=== PATIENT | male | born 1960 | race Caucasian/White ===

== ENCOUNTER 2020-10-28 06:41 | Outpatient (CLI) | payer OTHER, SELFPAY ==
--- NOTE | ~2020-10-28 | XR_ITS ---
XR chest 2V 10/28/2020 06:54 Indication: Shortness of breath Procedure: PA and lateral views of the chest Comparison: No prior studies for comparison. Findings: Heart size normal. There is ectasia of the thoracic aorta. There is scoliosis. Bibasilar in filtrates. No significant pleural effusion, edema or pneumothorax. No acute osseous abnormality. Ther e is a spinal tamika overlying the thoracic spine. There are tiny punctate foreign bodies overlying the left breast. Impression: 1: Bibasilar infiltrates may represent atelectasis/scarring or developing pneumonia. Reviewed, dictated and finalized at location B. Impression: 1: Bibasilar infiltrates may represent atelectasis/scarring or developing pneum onia.
== END 2020-10-28 06:42 | disposition home or self-care (01) ==
PROVIDERS: PCP Family Medicine; Visit Provider Physician Assistant Medical
DX: R06.02 Shortness of breath (principal); R91.8 Other nonspecific abnormal finding of lung field
CPT/HCPCS: 71046

== ENCOUNTER 2020-11-30 08:02 | Outpatient (CLI) | payer OTHER, SELFPAY ==
--- NOTE | ~2020-11-30 | XR_ITS ---
XR chest 2V 11/30/2020 08:17 Indication: Follow-up pneumonia Procedure: PA and lateral views of the chest Comparison: 10/28/2020 Findings: Persistent left lower lobe airspace disease with resolution of right basilar infiltrates. N o significant effusion. Heart size normal. No edema or pneumothorax. Impression: 1: Persistent left lower lobe airspace disease which may represent atelectasis and/or residual pneumo lynn. Reviewed, dictated and finalized at location A. Impression: 1: Persistent left lower lobe airspace disease which may represent atelectasis and/or residual pneumonia.
== END 2020-11-30 08:03 | disposition home or self-care (01) ==
PROVIDERS: PCP Family Medicine; Visit Provider Physician Assistant Medical
DX: J98.11 Atelectasis (principal)
CPT/HCPCS: 71046

== ENCOUNTER 2021-01-17 02:05 | Day surgery (SDC) | payer OTHER, SELFPAY ==
[2021-01-04 09:59] VITALS: BMI 28.1
[2021-01-17 07:46] VITALS: BP 149/96; PULSE 83; RESP 18; TEMP 36.6; O2SAT 96; BMI 28.1
[2021-01-17] MEDS: LACTATED RINGERS 1,000 ML 150 ML IV CONT (07:48)
--- NOTE | 2021-01-17 08:20 | PM.HPGS ---
History of Present Illness History of Present Illness Consent: Risks, benefits, and alternatives have been discussed and questions answered. Patient agrees to proceed with procedure. Chief complaint: anemia, melena Narrative: Wyatt Hilton is a 60 year old male with AYAD and FOBT + but denies overt gib, no dysphagia. Never had scopes. Review of Systems Constitutional: Constitutional: Denies headache(s) and Denies weakness Eyes: Eyes: Denies blurry vision ENT: Reports Normal hearing present, Denies headache(s) and Denies neck pain Cardiovascular: Cardiovascular: Denies chest pain and Denies dyspnea Respiratory: Respiratory: Denies dyspnea Gastrointestinal: Gastrointestinal: Reports no additional gastrointestinal complaints Genitourinary: Genitourinary: Denies dysuria Musculoskeletal: Musculoskeletal: Denies neck pain Integumentary/Breasts: Skin/Breast: Denies dry skin Neurologic: Reports Normal hearing present, Denies headache(s) and Denies weakness Psychiatric: Psychiatric: Denies anxiety Endocrine: Endocrine: Denies change in body appearance Hematologic/Lymphatic: Hematologic/Lymphatic: Denies easy bleeding Allergic/Immunologic: Allergic/Immunologic: Denies urticaria PMFSH Past Medical History Medical History (Updated 01/17/21 @ 08:20 by Ar Ponce MD) BMI (body mass index) 20.0-29.9 Iron deficiency anemia Occult blood in stools Family History Family History Father Hypertension Social History Social History Smoking packs per day: 0.50 Smoking cigarettes per day: 10.0 Years smoked: 30 Smoking pack-years: 15.00 Smoking status: Current some day smoker Tobacco type: cigarettes Second hand tobacco smoke exposure: No Alcohol intake: never Substance use: never Substance use type: does not use Living arrangements: with family Spiritual care concerns: No Meds Home Medications and Allergies Home Medications Medication Instructions Recorded Confirmed Type ferrous sulfate 325 mg (65 mg 325 mg PO TID #90 tablet 11/12/20 01/17/21 Rx iron) tablet albuterol sulfate 90 mcg/actuation 1 inh INHALATION Q4H PRN #6.7 g 11/17/20 01/17/21 Rx aerosol inhaler rosuvastatin 40 mg tablet 40 mg PO DAILY #30 tablet 11/17/20 01/17/21 Rx aspirin [Adult Low Dose Aspirin] 81 mg PO DAILY 01/04/21 01/17/21 History Allergies Allergy/AdvReac Type Severity Reaction Status Date / Time Penicillins Allergy Mild made knees Verified 01/17/21 07:45 hurt Vital Signs Vital Signs - 24 hr 01/17/21 07:46 Temperature 98 F Pulse Rate 83 Respiratory Rate 18 Blood Pressure 149/96 H Pulse Oximetry 96 Exam Const: General: comfortable and no acute distress HENMT: General nose exam: Normal nares present Eyes: General: appearance normal, both eyes and all related structures Neck: Neck: no JVD Resp: Auscultation: clear to auscultation bilaterally Cardio: Rate: regular rate Rhythm: regular rhythm GI: Inspection: non-distended GI Palp: Yes Soft to palpation Skin: General skin exam: normal color Neuro: General: gait normal Speech: normal speech Extrem: General: normal to inspection Psych: Mental Status: mental status grossly normal Assessment and Plan Assessment and plan (1) Iron deficiency anemia: Code(s): D50.9 - Iron deficiency anemia, unspecified Status: Acute Assessment and Plan: egd and colonoscopy, assess if gi source (2) Occult blood in stools: Code(s): R19.5 - Other fecal abnormalities Status: Acute
--- NOTE | 2021-01-17 08:21 | WPDANESEPPF ---
Anes - Initial Pre Proc Eval Procedure: Operation Date: 01/17/21 08:30 Proposed Procedures p Esophagogastroduodenoscopy & Colonoscopy - Ar Ponce MD Date/Time: 01/17/21 08:21 Surgeon: Ar Ponce MD Pre Op Diagnosis: anemia, melena Patient Data Age: 60 Gender: M Height: 1.93 m Weight: 105 kg Last Vital Signs Temp 98 F 01/17/21 07:46 Pulse 83 01/17/21 07:46 Resp 18 01/17/21 07:46 BP 149/96 H 01/17/21 07:46 Pulse Ox 96 01/17/21 07:46 Allergies Allergy/AdvReac Type Severity Reaction Status Date / Time Penicillins Allergy Mild made knees Verified 01/17/21 07:45 hurt Home Medications Medication Instructions Recorded Confirmed Type ferrous sulfate 325 mg (65 mg 325 mg PO TID #90 tablet 11/12/20 01/17/21 Rx iron) tablet albuterol sulfate 90 mcg/actuation 1 inh INHALATION Q4H PRN #6.7 g 11/17/20 01/17/21 Rx aerosol inhaler rosuvastatin 40 mg tablet 40 mg PO DAILY #30 tablet 11/17/20 01/17/21 Rx aspirin [Adult Low Dose Aspirin] 81 mg PO DAILY 01/04/21 01/17/21 History Patient hx anesthesia problems: none Family hx anesthesia problems: none PMFSH Past Medical History Medical History (Updated 01/17/21 @ 08:20 by Ar Ponce MD) BMI (body mass index) 20.0-29.9 Iron deficiency anemia Occult blood in stools Family History Family History Father Hypertension Social History Social History Smoking packs per day: 0.50 Smoking cigarettes per day: 10.0 Years smoked: 30 Smoking pack-years: 15.00 Smoking status: Current some day smoker Tobacco type: cigarettes Second hand tobacco smoke exposure: No Alcohol intake: never Substance use: never Substance use type: does not use Living arrangements: with family Spiritual care concerns: No Anes - Eval Final PreProcedure Day of Procedure 01/17/21 08:21 Patient weight: obese Heart: regular rate and rhythm Lungs: clear to auscultation Airway: Mallampati scale class III Neurological: alert and oriented Last oral intake: >/= 8 hours ASA classification: III Emergent: no Anesthetic plan: proceed Anesthesia type and monitoring: general GIVS and standard monitoring Informed Consent: The patient's anesthetic plan and its attendant risks and benefits were discussed with the patient/family/POA. Questions were solicited and answers provided to the satisfaction of the patient/family/POA.
[2021-01-17] MEDS: BENZOCAINE (*SP) 60 ML SPRAY CAN (HURRICAINE) 1 SPRAY MUCOUS MEM (08:31)
[2021-01-17 09:05] VITALS: BP 135/84; PULSE 82; RESP 20; O2SAT 96
[2021-01-17 09:15] VITALS: BP 141/84; PULSE 79; RESP 22; O2SAT 96
[2021-01-17 09:25] VITALS: BP 153/99; PULSE 80; RESP 21; O2SAT 97
== END 2021-01-17 09:35 | disposition home or self-care (01) ==
PROVIDERS: PCP Family Medicine; Visit Provider Internal Medicine Gastroenterology
PROC: 0DJ08ZZ Inspection of Upper Intestinal Tract, Via Natural or Artificial Opening Endoscopic (ICD-10-PCS; CPT 43235; principal; 2021-01-17 08:30)
DX: D50.9 Iron deficiency anemia, unspecified (principal); D12.5 Benign neoplasm of sigmoid colon; K22.70 Barrett's esophagus without dysplasia; R19.5 Other fecal abnormalities; K44.9 Diaphragmatic hernia without obstruction or gangrene; K57.30 Diverticulosis of large intestine without perforation or abscess without bleeding; F17.210 Nicotine dependence, cigarettes, uncomplicated
CPT/HCPCS: 45385; 43239; 88305; J2704; J7120

== ENCOUNTER 2021-01-31 05:38 | Outpatient (CLI) | payer OTHER, SELFPAY ==
[2021-01-21 12:27] VITALS: BMI 27.3
--- NOTE | 2021-01-21 12:27 | PC.NURSE ---
[facility] CAPSULE INSTRUCTIONS REVIEWED WITH PATIENT AND INSTRUCTIONS MAILED TO PATIENT 01/19/2021
--- NOTE | 2021-01-31 06:39 | SUR.OPER ---
Patient brought to GI Lab. Instructions for patient undergoing Capsule Endoscopy reviewed with patient. Consent form signed. Sensor array applied to patient's abdomen and connected to recorded. Patient swallowed capsule with 16 ozs of water infused with Simethicone. Patient instructed they may have clear liquids at 0830 this AM and eat or drink at 1030 this AM. Patient instructed to return to GI Lab at 1500 this afternoon for removal of recording device and to call [phone] or to return to the hospital if any nausea and vomiting or abdominal pain is experienced.
== END 2021-01-31 05:39 | disposition home or self-care (01) ==
PROVIDERS: PCP Family Medicine; Visit Provider Internal Medicine Gastroenterology
PROC: 0DJ07ZZ Inspection of Upper Intestinal Tract, Via Natural or Artificial Opening (ICD-10-PCS; CPT 91110; principal; 2021-01-31 07:00)
DX: Z01.818 Encounter for other preprocedural examination (principal)
CPT/HCPCS: 91110

== ENCOUNTER 2021-05-02 07:11 | Outpatient (CLI) | payer OTHER, SELFPAY ==
--- NOTE | ~2021-05-02 | XR_ITS ---
EXAMINATION: XR chest 2V DATE: 05/02/2021 07:27 INDICATION: Cough TECHNIQUE: Frontal and lateral views of the chest are obtained COMPARISON: 11/30/2020 FINDINGS: There are minimal bibasilar airspace opacities. There is no pleural effusion or pneumothora x. The cardiomediastinal silhouette is normal. There is mild thoracic spondylosis. There is thoracic dextroscoliosis with an unchanged spinal tamika. IMPRESSION: 1. Minimal bibasilar airspace opacities, likely atelectasis. Reviewed, dictated and finalized at location B.
== END 2021-05-02 07:12 | disposition home or self-care (01) ==
LOC: ANHIMG 07:16
PROVIDERS: PCP Family Medicine; Visit Provider Physician Assistant Medical
DX: J20.9 Acute bronchitis, unspecified (principal); R91.8 Other nonspecific abnormal finding of lung field
CPT/HCPCS: 71046

== ENCOUNTER 2021-08-17 12:18 | Outpatient (CLI) | payer OTHER, SELFPAY ==
--- NOTE | ~2021-08-17 | XR_ITS ---
EXAMINATION: XR lumbar spine 2-3V DATE: 08/17/2021 12:41 INDICATION: Low back pain TECHNIQUE: Anteroposterior and lateral views of the lumbar spine, and cone-down lateral view of the l umbosacral junction were obtained. COMPARISON: 01/03/2006 FINDINGS: There is thoracolumbar levoscoliosis. A partially imaged Proctor tamika is noted. There is no fracture. There are 5 mm of anterolisthesis of L5 on S1. There is moderate loss of intervertebral disc space height at L2-3 and L5-S1. The vertebral body heights are maintained. Phleboliths are noted in the pelvis. IMPRESSION: 1. Thoracolumbar levoscoliosis and moderate lumbar spondylosis without acute findings. Reviewed, dictated and finalized at location A. B PHYSICIAN IMPRESSION: 1. Thoracolumbar levoscoliosis and moderate lumbar spondylosis without acute fi ndings.
== END 2021-08-17 12:19 | disposition home or self-care (01) ==
LOC: ANHIMG 12:22
PROVIDERS: PCP Family Medicine; Visit Provider Nurse Practitioner Family
DX: M47.816 Spondylosis without myelopathy or radiculopathy, lumbar region (principal); M41.9 Scoliosis, unspecified
CPT/HCPCS: 72100

== ENCOUNTER 2021-12-07 03:17 | Inpatient (IN) | payer OTHER, SELFPAY ==
[2021-12-07] VITALS (25 sets, daily range): BP systolic 125–156; BP diastolic 64–93; PULSE 73–103; RESP 12–25; TEMP 36.4–36.8; O2SAT 89–98; BMI 27.1
--- NOTE | ~2021-12-07 | XR_ITS ---
EXAMINATION: XR chest 1V portable DATE: 12/07/2021 04:55 INDICATION: Cough. TECHNIQUE: A single frontal view of the chest was obtained. COMPARISON: Chest 2 views 05/02/2021 FINDINGS: There are airspace opacities in the lower lung zones. No pleural effusion or pneumothorax. The heart size is normal. There is a distraction tamika in the spine. IMPRESSION: 1. Airspace opacities in the lower lung zones, consistent with atelectasis/scarring versus pneumonia. Reviewed, dictated and finalized at location A. IMPRESSION: 1. Airspace opacities in the lower lung zones, consistent with atelectasis/scar ring versus pneumonia.
--- NOTE | ~2021-12-07 | XR_ITS ---
XR chest 2V 12/10/2021 11:27 Indication: Dyspnea Procedure: 2 view chest Comparison: Comparison to multiple prior studies sequentially, with oldest reviewed study dated 10/28. Findings: There is posterior basilar airspace disease, suspicious for pneumonia. Possible small effus ion. Heart size normal. No pneumothorax. There is a spinal tamika overlying the thoracic spine. No acute osseous abnormality. Impression: 1: Posterior basilar airspace disease, suspicious for pneumonia. Reviewed, dictated and finalized at location A. Impression: 1: Posterior basilar airspace disease, suspicious for pneumonia.
--- NOTE | 2021-12-07 03:19 | ECG_ITS ---
Measurements Intervals [place] Rate: 96 P: 60 [place]: 195 QRS: -27 QRSD: 142 T: 114 QT: 385 QTc: 487 Interpretive Statements SINUS RHYTHM LEFT BUNDLE BRANCH BLOCK [120+ ms QRS DURATION, 80+ ms Q/S IN V1/V2, 85+ ms R IN I/aVL/V5/V6] NO PREVIOUS ECG AVAILABLE FOR COMPARISON Electronically Signed On 12-07-2021 22:09:15 CDT by Marily Iyer M.D.
[2021-12-07 03:37] LABS: Basophils Absolute Auto 0.1 K/mm3 (0.0-0.1); Basophils Percent Auto 0.5 % (0.2-1.2); Eosinophils Percent Auto 0.2 % (0-4.4); Hematocrit 43.3 % (42.0-52.0); Hemoglobin 14.4 g/dL (14.0-18.0); Immature Granulocyte Absolute 0.08 K/mm3 (0.00-0.031); Immature Granulocyte Percent A 0.5 % (0-0.5); Lymphocytes Absolute Auto 1.64 K/mm3 (0.9-3.2); Lymphocytes Percent Auto 9.7 % (18.3-44.2); Mean Corpuscular HGB Conc 33.3 g/dl (32-36); Mean Corpuscular Hemoglobin 30.6 pg (26-34); Mean Corpuscular Volume 92.1 fl (80-100); Mean Platelet Volume 9.8 fl (7.4-10.4); Monocytes Absolute Auto 1.7 K/mm3 (0.1-0.6); Monocytes Percent Auto 9.8 % (2.6-8.5); Neutrophils Absolute Auto 13.5 K/mm3 (1.3-6.7); Neutrophils Percent Auto 79.3 % (45.5-73.1); Platelet Count Result 258 k/mm3 (150-375); Red Cell Distribution Width 12.8 % (11.5-14.5)
[2021-12-07] MEDS: ONDANSETRON INJ 4 MG/2 ML VIAL IV PUSH (03:44)
[2021-12-07 03:52] LABS: Alanine Aminotransferase 24 U/L (6-50); Albumin Level 4.2 g/dL (3.5-5.1); Alkaline Phosphatase 92 U/L (38-126); Anion Gap 7 mmol/L (8-16); Aspartate Amino Transferase 31 U/L (17-59); Bilirubin,Total 1.4 mg/dL (0.2-1.3); Blood Urea Nitrogen 22 mg/dL (9-20); Calcium 8.9 mg/dL (8.4-10.2); Carbon Dioxide 28 mmol/L (22-30); Chloride 104 mmol/L (98-107); Estimated CRCL calculation 117 ml/min; Estimated Glomerular Filt Rate > 60; Glucose 123 mg/dL (65-110); Potassium 3.5 mmol/L (3.4-5.0); Sodium 139 mmol/L (137-145)
[2021-12-07] MEDS: ALBUTEROL SULFATE NEB 2.5 MG/3 ML INH 15 MG INHALATION (03:59)
[2021-12-07] MEDS: IPRATROPIUM BR 0.02% INH SOLN 0.5 MG/2.5 ML VIAL 1 MG INHALATION (03:59)
[2021-12-07 04:04] LABS: NT Pro B Type Natriuretic Pept 154 pg/mL (5-100); Troponin I 0.018 ng/mL (0.000-0.034)
[2021-12-07 04:18] LABS: Influenza A QL RT-PCR Negative (Negative); Influenza B QL RT-PCR Negative (Negative); SARS-CoV-2 RNA PCR Negative
[2021-12-07] MEDS: predniSONE 20 MG TABLET 40 MG PO (04:21)
--- NOTE | 2021-12-07 04:31 | ED.SOB ---
HPI - SOB/Dyspnea General Chief Complaint: Shortness of Breath/Dyspnea Stated Complaint: difficulty breathing Time Seen by Provider: 12/07/21 03:23 History of Present Illness HPI Narrative: 61-year-old male with history of bronchitis and smoking presents with 2 days of increasing difficulty breathing, he states that he has also been having some cough with lots of phlegm, no fevers or chills, no nausea or vomiting or diarrhea, he states that he has multiple family members were sick with RSV and before then COVID but he has not been around them. He is fully vaccinated, states that he had taken tests for COVID at home that were negative, he will decided come in because when he was walking up the stairs he got quite winded and his home pulse oximeter read 77% and he felt lightheaded. Related Data Home Medications Medication Instructions Recorded Confirmed aspirin 81 mg tablet 81 mg PO DAILY 01/04/21 08/08/21 Allergies Allergy/AdvReac Type Severity Reaction Status Date / Time Penicillins Allergy Mild made knees Verified 08/17/21 13:24 hurt Review of Systems Review of Systems: CONST: No fever. HEENT: No sore throat C/V: Some chest tightness RESP: Cough and difficulty breathing GI: No nausea or vomiting : No dysuria. M/S: No joint pain. SKIN: No rash. NEURO: Occasional lightheadedness PSYCH: [No depression] [facility] Past Medical History Medical History BMI (body mass index) 20.0-29.9 BMI 27.0-27.9,adult BMI 28.0-28.9,adult BMI 29.0-29.9,adult Iron deficiency anemia Occult blood in stools Family History Family History Father Hypertension Mother No problems noted. Sibling No problems noted. 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 Gender identity (if verbalized by the patient): Male Sexual Orientation (if Verbalized by the Patient): Straight or Heterosexual Spiritual care concerns: No Agree to blood products: Yes Exam Narrative: EXAMINATION OF ORGAN SYSTEMS/BODY AREAS: Constitutional: Vital signs per nursing GENERAL: Appears somewhat dyspneic HEAD: Normal with no signs of head trauma. EYES: EOMI, conjunctiva normal ENT: Hearing grossly intact LUNGS: Slightly labored breathing, coarse lung sounds with prolonged and Tory phase and wheezing HEART: [Regular rate and rhythm] ABD: [Soft], [nontender to palpation] EXT: Normal range of motion SKIN: [No rashes or lesions.] NEURO: [Alert and oriented x 3. No gross focal sensory or strength deficits.] PSYCH: Normal affect Course Vital Signs Vital signs: Vital Signs Temperature 98.2 F 12/07/21 03:25 Pulse Rate 97 12/07/21 03:25 Respiratory Rate 19 12/07/21 03:25 Blood Pressure 156/93 H 12/07/21 03:25 Pulse Oximetry 93 12/07/21 03:25 Oxygen Delivery Room Air 12/07/21 03:25 Temperature 98.2 F 12/07/21 03:25 Pulse Rate 99 12/07/21 05:48 Respiratory Rate 20 12/07/21 05:48 Blood Pressure 126/77 12/07/21 05:48 Pulse Oximetry 93 12/07/21 05:48 Oxygen Delivery Nasal Cannula 12/07/21 05:30 Oxygen Flow Rate 2 12/07/21 05:30 MDM - SOB/Dyspnea MDM Narrative Medical decision making narrative: 61-year-old male presenting with increased difficulty breathing over the last 2 days and cough with phlegm, vital signs normal for low/normal O2, exam does show wheezing, my concern is for possible COPD exacerbation versus pneumonia, doubt cardiac origin without chest pain. Patient was gi
[2021-12-07] MEDS: AZITHROMYCIN 250 MG TABLET 500 MG PO (05:37)
--- NOTE | 2021-12-07 07:09 | ADMGEN ---
This patient, Wyatt Hilton, was admitted to 2 Medical Room 261-01. Patient/family oriented to hospital policies and general routines including ID bracelet, bed and alarms, visiting hours, pain management, procedures, bathroom and other care routines, personal items, smoking policy, room service/diet, and visiting hours. Information on how to activate the Rapid Response Team has been discussed. Patient/Family are encouraged to report perceived risks to care and to ask questions if they do not understand what they are told or what they should do.
--- NOTE | 2021-12-07 10:33 | PM.IMHP ---
H&P: HPI History of Present Illness Date/Time: 12/07/21 10:33 Chief Complaint: sob/cough Narrative: 61 yo male smoker hx of COPD who presented to the ED with complaints of productive cough w/ yellow sputum, sob, and wheezing which has been worsening x2-3 days. Also notes chills and body aches. Was walking up the stairs last night and his home pulse ox said 77%, prompting him to to come to the ED for evaluation. He was also feeling light headed at the time. He has grandchildren in daycare who have been sick recently as well as several family members, but has not been around them recently. Fully vaccinated for COVID and his home test was negative. He also admits to some chest pain with his coughing fits only, as well as nasal congestion and sore throat from the post nasal drip. ED workup significant for leukocytosis of 17.0 and CXR w/ atelectasis vs PNA. Pt being admitted as observation status in this setting. Review of Systems Review of Systems: General: denies fever, reports chills and body aches Eyes: Denies vision changes or eye pain ENT: reports nasal congestion and sore throat Respiratory: reports cough and shortness of breath Cardiovascular: reports chest pain w/ cough, denies palpitations or lower extremity edema Gastrointestinal: Denies abdominal pain, vomiting, or diarrhea Genitourinary: Denies dysuria or urinary frequency Musculoskeletal: Denies back pain or muscle aches Neurological: Denies headache, paraesthesias, or motor weakness Integumentary: Denies rash or other skin lesions Psychiatric: Denies [facility] Past Medical History Medical History (Updated 12/07/21 @ 10:53 by Ligia Hager PA-C) BMI 27.0-27.9,adult COPD (chronic obstructive pulmonary disease) Iron deficiency anemia Mixed hyperlipidemia Tobacco abuse Family History Family History Father Hypertension Mother No problems noted. Sibling No problems noted. 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 Gender identity (if verbalized by the patient): Male Sexual Orientation (if Verbalized by the Patient): Straight or Heterosexual Spiritual care concerns: No Agree to blood products: Yes Meds Home Medications and Allergies Home Medications Medication Instructions Recorded Confirmed Type aspirin 81 mg tablet 81 mg PO DAILY 01/04/21 12/07/21 History omeprazole 40 mg capsule,delayed 40 mg PO DAILY #30 caps 01/17/21 12/07/21 Rx release albuterol sulfate 90 mcg/actuation 1 inh inhalation Q4H PRN shortness 10/03/21 12/07/21 Rx aerosol inhaler (ProAir HFA) of breath or wheezing #6.7 grams budesonide-formoterol HFA 160 See Rx Instructions .Route 11/02/21 12/07/21 Rx mcg-4.5 mcg/actuation aerosol .COMPLEX #10.2 grams inhaler (Symbicort) rosuvastatin 40 mg tablet (Crestor) 40 mg PO DAILY #30 tabs 11/24/21 12/07/21 Rx ferrous sulfate 325 mg (65 mg 325 mg PO DAILY 12/07/21 12/07/21 History iron) tablet Allergies Allergy/AdvReac Type Severity Reaction Status Date / Time Penicillins Allergy Mild made knees Verified 08/17/21 13:24 hurt Vital Signs Vital Signs - 24 hr 12/07/21 03:25 12/07/21 03:55 12/07/21 04:00 Temperature 98.2 F Pulse Rate 97 94 Respiratory Rate 19 20 Blood Pressure 156/93 H Pulse Oximetry 93 93 Oxygen Delivery Room Air Room Air Oxygen Flow Rate 12/07/21 03:26 12/07/21 04:31 12/07/21 05:02 Temperature Pulse Rate 97 94 103
[2021-12-07] MEDS: ENOXAPARIN 40 MG/0.4 ML SYRINGE SUB-Q (11:21)
[2021-12-07] MEDS: IPRATROPIUM BR 0.02% INH SOLN 0.5 MG/2.5 ML VIAL INHALATION ×3 (11:55→20:09)
[2021-12-07] MEDS: ALBUTEROL SULFATE NEB 2.5 MG/3 ML INH INHALATION ×3 (11:56→20:09)
[2021-12-07] MEDS: NICOTINE (*PBKC) 21 MG PATCH 1 PATCH TRANSDERM (13:10)
[2021-12-07] MEDS: FLUTICASONE/SALMETEROL 115-21 MCG INHALER 1 PUFF 2 PUFF INHALATION (20:09)
[2021-12-07] MEDS: PANTOPRAZOLE 40 MG TABLET PO (21:00)
[2021-12-08] VITALS (19 sets, daily range): BP systolic 136–153; BP diastolic 73–79; PULSE 49–94; RESP 16–18; TEMP 36.5–36.6; O2SAT 92–95
[2021-12-08] MEDS: IPRATROPIUM BR 0.02% INH SOLN 0.5 MG/2.5 ML VIAL INHALATION ×5 (00:19→20:09)
[2021-12-08] MEDS: ALBUTEROL SULFATE NEB 2.5 MG/3 ML INH INHALATION ×4 (00:19→12:52)
[2021-12-08 05:47] LABS: Basophils Absolute Auto 0.1 K/mm3 (0.0-0.1); Basophils Percent Auto 0.7 % (0.2-1.2); Eosinophils Absolute Auto 0.1 K/mm3 (0-0.3); Hematocrit 43.1 % (42.0-52.0); Hemoglobin 13.6 g/dL (14.0-18.0); Immature Granulocyte Absolute 0.04 K/mm3 (0.00-0.031); Immature Granulocyte Percent A 0.3 % (0-0.5); Lymphocytes Absolute Auto 2.26 K/mm3 (0.9-3.2); Lymphocytes Percent Auto 19.8 % (18.3-44.2); Mean Corpuscular HGB Conc 31.6 g/dl (32-36); Mean Corpuscular Volume 95.1 fl (80-100); Monocytes Percent Auto 8.9 % (2.6-8.5); Neutrophils Absolute Auto 7.9 K/mm3 (1.3-6.7); Neutrophils Percent Auto 69.3 % (45.5-73.1); Platelet Count Result 262 k/mm3 (150-375); Red Blood Count 4.53 M/mm3 (4.6-6.20); Red Cell Distribution Width 12.7 % (11.5-14.5); White Blood Count 11.4 K/mm3 (4.5-10.0)
[2021-12-08 06:19] LABS: Anion Gap 6 mmol/L (8-16); Blood Urea Nitrogen 20 mg/dL (9-20); Calcium 8.7 mg/dL (8.4-10.2); Carbon Dioxide 32 mmol/L (22-30); Chloride 100 mmol/L (98-107); Estimated CRCL calculation 117 ml/min; Estimated Glomerular Filt Rate > 60; Glucose 137 mg/dL (65-110); Potassium 3.3 mmol/L (3.4-5.0); Sodium 138 mmol/L (137-145)
[2021-12-08] MEDS: ASPIRIN 81 MG ENTERIC TABLET PO (08:55)
[2021-12-08] MEDS: FERROUS SULFATE 324 MG TABLET PO (08:55)
[2021-12-08] MEDS: PANTOPRAZOLE 40 MG TABLET PO ×2 (08:56→20:45)
[2021-12-08] MEDS: ROSUVASTATIN 10 MG TABLET 40 MG PO (08:56)
[2021-12-08] MEDS: NICOTINE (*PBKC) 21 MG PATCH 1 PATCH TRANSDERM (08:57)
[2021-12-08] MEDS: ENOXAPARIN 40 MG/0.4 ML SYRINGE SUB-Q (08:58)
[2021-12-08] MEDS: FLUTICASONE/SALMETEROL 115-21 MCG INHALER 1 PUFF 2 PUFF INHALATION ×2 (09:12→20:10)
--- NOTE | 2021-12-08 13:02 | PM.IMPN ---
Progress Note: A&P Assessment and Plan (1) Acute respiratory failure with hypoxia: Code(s): J96.01 - Acute respiratory failure with hypoxia Status: Acute Assessment and Plan: -likely secondary to COPD and PNA. continue treatment as below. -covid and flu negative -Wean O2 as tolerated to keep >90%. Consider 6 min walk study prior to discharge if still desaturates with ambulation. (2) COPD (chronic obstructive pulmonary disease): Code(s): J44.9 - Chronic obstructive pulmonary disease, unspecified Status: Acute Assessment and Plan: -Add prednisone 40 mg PO daily and mucinex BID. -Continue duonebs scheduled & PRN. -Counseled to quit smoking. -first exacerbation/hospitalization for COPD ever, he states; likely exacerbated by sick contact exposure. -he uses symbicort maintenance inhaler and would benefit from albuterol PRN for emergency use as he reports not using this. (3) CAP (community acquired pneumonia): Code(s): J18.9 - Pneumonia, unspecified organism Status: Acute Assessment and Plan: -Continue azithromycin & rocephin IV. Transition to oral antibiotics in 24-48 hours if still stable. -Repeat CBC tomorrow. Afebrile currently. Subjective Date/time seen: 12/08/21 13:02 61 yo male with h/o COPD and chronic tobacco use, admitted for acute COPD exacerbation and pneumonia. He reports continued chest congestion today. He feels short of breath with minimal activity. His cough is still present and has green/yellow, thick sputum. No fevers, chills, diaphoresis, chest pain or dizziness. He reports ambulating in the hallway yesterday and his watch O2 reading dropped 7 points from starting point 91% while on room air. Review of Systems Review of Systems: All systems reviewed & are unremarkable except as noted in HPI and below Exam Narrative: General: No acute distress, non-toxic appearing Eyes: PERRL, no scleral icterus HEENT: NCAT, external ears normal, MMM Respiratory: No respiratory distress, coarse breath sounds with wheezing in all [place] anteriorly and posteriorly. No retractions. Cardiovascular: RRR, no murmur, gallops or rubs. Abdominal: Soft, nontender, non distended, no rebound or guarding. Normoactive bowel sounds. Musculoskeletal: Moves all 4 extremities, no edema Neurological: A/Ox3, speech clear, no facial asymmetry Skin: Warm, dry, no rashes Psychiatric: Normal affect, normal mood Objective Data Vital Signs Vital Signs: Vital Signs - 24 hr 12/07/21 13:50 12/07/21 16:28 12/07/21 16:31 Temperature 97.9 F Pulse Rate 78 86 86 Respiratory Rate 16 16 16 Blood Pressure 133/69 Pulse Oximetry 92 92 Oxygen Delivery Room Air 12/07/21 16:35 12/07/21 16:03 12/07/21 19:59 Temperature Pulse Rate 82 85 Respiratory Rate 16 Blood Pressure Pulse Oximetry 89 L Oxygen Delivery Room Air 12/07/21 20:09 12/07/21 20:16 12/07/21 20:22 Temperature Pulse Rate 81 81 84 Respiratory Rate 18 18 Blood Pressure Pulse Oximetry 94 Oxygen Delivery Room Air 12/07/21 22:09 12/07/21 20:00 12/08/21 00:00 Temperature 97.8 F Pulse Rate 82 80 72 Respiratory Rate 16 Blood Pressure 138/64 Pulse Oximetry 94 Oxygen Delivery 12/08/21 00:19 12/08/21 04:35 12/08/21 04:00 Temperature 97.9 F Pulse Rate 78 76 81 Respiratory Rate 18 16 Blood Pressure 136/73 Pulse Oximetry 93 Oxygen Delivery 12/08/21 04:04 12/08/21 04:10 12/08/21 09:14 Temperature Pulse Rate 76 49 L 81 Respiratory Rate 18 18 18 Blood Pressure Pulse Oximetry Oxygen Delivery 12/08/21 09:15 12/08/21 09:22 12/08/21 08:00 Temperature Pulse Rate 86 81 Respiratory Rate 18 Blood Pressure Pulse Oximetry 93 Oxygen Delivery Room Air 12/08/21 12:53 Temperature Pulse Rate 75 Respiratory Rate 18 Blood Pressure Pulse Oximetry Oxygen Delivery Intake/Output Intake/Outp
[2021-12-08] MEDS: predniSONE 20 MG TABLET 40 MG PO (14:41)
[2021-12-08] MEDS: ALBUTEROL SULFATE NEB 2.5 MG/0.5 ML INH INHALATION (20:10)
[2021-12-08] MEDS: guaiFENesin 12 HR 600 MG TABCR PO (20:45)
[2021-12-09] VITALS (16 sets, daily range): BP systolic 148–153; BP diastolic 75–80; PULSE 59–105; RESP 16–22; TEMP 36.4–36.7; O2SAT 87–96
[2021-12-09] MEDS: IPRATROPIUM BR 0.02% INH SOLN 0.5 MG/2.5 ML VIAL INHALATION ×3 (02:11→14:50)
[2021-12-09] MEDS: ALBUTEROL SULFATE NEB 2.5 MG/0.5 ML INH INHALATION ×3 (02:11→14:50)
[2021-12-09 06:15] LABS: Hematocrit 42.3 % (42.0-52.0); Hemoglobin 13.6 g/dL (14.0-18.0); Mean Corpuscular HGB Conc 32.2 g/dl (32-36); Mean Corpuscular Hemoglobin 30.2 pg (26-34); Platelet Count Result 275 k/mm3 (150-375); Red Cell Distribution Width 12.1 % (11.5-14.5); White Blood Count 11.3 K/mm3 (4.5-10.0)
[2021-12-09 07:10] LABS: Anion Gap 4 mmol/L (8-16); Blood Urea Nitrogen 18 mg/dL (9-20); Calcium 8.7 mg/dL (8.4-10.2); Carbon Dioxide 31 mmol/L (22-30); Chloride 101 mmol/L (98-107); Estimated CRCL calculation 117 ml/min; Estimated Glomerular Filt Rate > 60; Glucose 107 mg/dL (65-110); Potassium 3.7 mmol/L (3.4-5.0); Sodium 136 mmol/L (137-145)
[2021-12-09] MEDS: guaiFENesin 12 HR 600 MG TABCR PO ×2 (08:07→20:48)
[2021-12-09] MEDS: PANTOPRAZOLE 40 MG TABLET PO ×2 (08:07→20:48)
[2021-12-09] MEDS: NICOTINE (*PBKC) 21 MG PATCH 1 PATCH TRANSDERM (08:07)
[2021-12-09] MEDS: predniSONE 20 MG TABLET 40 MG PO (08:07)
[2021-12-09] MEDS: ASPIRIN 81 MG ENTERIC TABLET PO (08:07)
[2021-12-09] MEDS: FERROUS SULFATE 324 MG TABLET PO (08:07)
[2021-12-09] MEDS: ROSUVASTATIN 10 MG TABLET 40 MG PO (08:08)
[2021-12-09] MEDS: ENOXAPARIN 40 MG/0.4 ML SYRINGE SUB-Q (08:08)
[2021-12-09] MEDS: FLUTICASONE/SALMETEROL 115-21 MCG INHALER 1 PUFF 2 PUFF INHALATION (08:42)
[2021-12-09] MEDS: AZITHROMYCIN 250 MG TABLET 500 MG PO (11:26)
--- NOTE | 2021-12-09 12:59 | PM.IMPN ---
Progress Note: A&P Assessment and Plan (1) Acute respiratory failure with hypoxia: Code(s): J96.01 - Acute respiratory failure with hypoxia Status: Acute Assessment and Plan: -likely secondary to COPD and PNA. continue treatment as below. -covid and flu negative -Wean O2 as tolerated to keep >90%. -Patient desaturates <89% on room air with exertion. He does not want home oxygen at this time. (2) COPD (chronic obstructive pulmonary disease): Code(s): J44.9 - Chronic obstructive pulmonary disease, unspecified Status: Acute Assessment and Plan: -Continue prednisone 40 mg PO daily x5 days, mucinex BID, duonebs scheduled & PRN. -Continue to reinforce smoking cessation. -first exacerbation/hospitalization for COPD ever, he states; likely exacerbated by sick contact exposure. -he uses symbicort maintenance inhaler and would benefit from albuterol PRN for emergency use as he reports not using this. Consider trelegy inhaler for COPD maintenance at discharge. (3) CAP (community acquired pneumonia): Qualifiers: Laterality: unspecified laterality Qualified Code(s): J18.9 - Pneumonia, unspecified organism Code(s): J18.9 - Pneumonia, unspecified organism Status: Acute Assessment and Plan: -Change to cefuroxime 500 mg PO BID x 5 days, to complete 7-day antibiotic course. -Repeat CBC tomorrow. Afebrile currently. Time Spent With Patient Time with patient: 15 - 25 minutes Subjective Date/time seen: 12/09/21 12:59 61 yo male with h/o COPD and chronic tobacco use, admitted for acute COPD exacerbation and pneumonia. Patient was found sitting at the side of the bed. He reports feeling better after his last breathing treatment. He feels his breathing is improved, however, he still has a productive cough. He ambulated with the nursing staff this morning and desaturated to 87% on room air. He felt lightheaded at that time. No chest pain or fevers. He vomited last night after a coughing fit. Review of Systems Review of Systems: All systems reviewed & are unremarkable except as noted in HPI and below Exam Narrative: General: No acute distress, non-toxic appearing adult male. Sitting at the bedside. No oxygen. Eyes: PERRL, no scleral icterus HEENT: NCAT, external ears normal, mucous membranes moist. Respiratory: No respiratory distress, diminished breath sounds with inspiratory & expiratory wheezing in all [place], mildly improved from yesterday. No retractions. Speaking in brief sentences. Cardiovascular: Normal S1 and S2 regular rate & rhythm, no murmur, gallops or rubs. Abdominal: Soft, nontender, non distended, no rebound or guarding. Normoactive bowel sounds. Musculoskeletal: Moves all 4 extremities, no edema Neurological: A/Ox3, speech clear, no facial asymmetry Skin: Warm, dry, no rashes Psychiatric: Normal affect, normal mood Objective Data Vital Signs Vital Signs: Vital Signs - 24 hr 12/08/21 14:00 12/08/21 16:00 12/08/21 20:10 Temperature 97.7 F Pulse Rate 74 76 72 Respiratory Rate 18 18 Blood Pressure 149/79 H Pulse Oximetry 95 Oxygen Delivery 12/08/21 20:23 12/08/21 22:00 12/08/21 20:00 Temperature 97.9 F Pulse Rate 77 85 Respiratory Rate 18 18 Blood Pressure 153/74 H Pulse Oximetry 94 Oxygen Delivery Room Air 12/08/21 20:00 12/09/21 00:00 12/09/21 02:11 Temperature Pulse Rate 78 74 73 Respiratory Rate 18 Blood Pressure Pulse Oximetry Oxygen Delivery 12/08/21 20:20 12/09/21 02:24 12/09/21 04:00 Temperature Pulse Rate 72 74 78 Respiratory Rate 18 Blood Pressure Pulse Oximetry 92 Oxygen Delivery Room Air 12/09/21 06:00 12/09/21 07:59 12/09/21 08:35 Temperature 97.6 F Pulse Rate 66 Respiratory Rate 16 16 Blood Pressure 151/79 H Pulse Oximetry 96 96 95 Oxygen Delivery Room Air Room Air 12/09/21 08:35 12/09/21 08:43 12/09/21 08:4
[2021-12-09] MEDS: CEFUROXIME AXETIL 250 MG TABLET 500 MG PO (20:48)
[2021-12-10] VITALS (19 sets, daily range): BP systolic 147–153; BP diastolic 83–93; PULSE 73–84; RESP 16–18; TEMP 36.3–36.9; O2SAT 92–97
--- NOTE | 2021-12-10 00:16 | PCRCNOTE ---
Window of time for administration has passed. See next scheduled administration.
[2021-12-10] MEDS: ALBUTEROL SULFATE NEB 2.5 MG/0.5 ML INH INHALATION ×4 (01:56→19:51)
[2021-12-10] MEDS: IPRATROPIUM BR 0.02% INH SOLN 0.5 MG/2.5 ML VIAL INHALATION ×4 (01:57→19:53)
[2021-12-10 06:00] LABS: Hematocrit 43.8 % (42.0-52.0); Hemoglobin 14.2 g/dL (14.0-18.0); Mean Corpuscular HGB Conc 32.4 g/dl (32-36); Mean Corpuscular Volume 92.4 fl (80-100); Mean Platelet Volume 9.7 fl (7.4-10.4); Platelet Count Result 315 k/mm3 (150-375); Red Blood Count 4.74 M/mm3 (4.6-6.20); Red Cell Distribution Width 12.3 % (11.5-14.5); White Blood Count 9.4 K/mm3 (4.5-10.0)
[2021-12-10] MEDS: FLUTICASONE/SALMETEROL 115-21 MCG INHALER 1 PUFF 2 PUFF INHALATION ×2 (09:12→19:52)
[2021-12-10] MEDS: ENOXAPARIN 40 MG/0.4 ML SYRINGE SUB-Q (09:28)
[2021-12-10] MEDS: NICOTINE (*PBKC) 21 MG PATCH 1 PATCH TRANSDERM (09:28)
[2021-12-10] MEDS: FERROUS SULFATE 324 MG TABLET PO (09:29)
[2021-12-10] MEDS: predniSONE 20 MG TABLET 40 MG PO (09:29)
[2021-12-10] MEDS: ASPIRIN 81 MG ENTERIC TABLET PO (09:29)
[2021-12-10] MEDS: ROSUVASTATIN 10 MG TABLET 40 MG PO (09:30)
[2021-12-10] MEDS: PANTOPRAZOLE 40 MG TABLET PO ×2 (09:30→20:55)
[2021-12-10] MEDS: guaiFENesin 12 HR 600 MG TABCR PO ×2 (09:30→20:55)
[2021-12-10] MEDS: CEFUROXIME AXETIL 250 MG TABLET 500 MG PO (09:30)
[2021-12-10] MEDS: levoFLOXacin 750 MG TABLET PO (12:24)
--- NOTE | 2021-12-10 16:28 | PM.IMPN ---
Progress Note: A&P Assessment and Plan (1) Acute respiratory failure with hypoxia: Code(s): J96.01 - Acute respiratory failure with hypoxia Status: Acute Assessment and Plan: -likely secondary to COPD and PNA. continue treatment as below. -covid and flu negative -Wean O2 as tolerated to keep >90%. -Patient desaturates <89% on room air with exertion. He does not want home oxygen at this time. (2) COPD (chronic obstructive pulmonary disease): Code(s): J44.9 - Chronic obstructive pulmonary disease, unspecified Status: Acute Assessment and Plan: -Continue prednisone 40 mg PO daily x5 days, mucinex BID, duonebs scheduled & PRN. -Continue to reinforce smoking cessation. -first exacerbation/hospitalization for COPD ever, he states; likely exacerbated by sick contact exposure. -add incruse ellipta for triple therapy. (3) CAP (community acquired pneumonia): Qualifiers: Laterality: unspecified laterality Qualified Code(s): J18.9 - Pneumonia, unspecified organism Code(s): J18.9 - Pneumonia, unspecified organism Status: Acute Assessment and Plan: -Change to levaquin 750 mg daily x 5 days. -Repeat CBC tomorrow. Afebrile currently. Subjective Date/time seen: 12/10/21 16:28 61 yo male with h/o COPD and chronic tobacco use, admitted for acute COPD exacerbation and pneumonia. Patient was found sitting at the side of the bed. He still feels short of breath at rest and with exertion. He reports feeling worse today than yesterday. Ambulatory spO2 on room air still pending. No chest pain, sputum changes, palpitations, lower extremity edema, hemoptysis, or calf pain. Review of Systems Review of Systems: All systems reviewed & are unremarkable except as noted in HPI and below Exam Narrative: General: No acute distress, non-toxic appearing adult male. Sitting at the bedside. No oxygen. Eyes: PERRL, no scleral icterus HEENT: NCAT, external ears normal, mucous membranes moist. Respiratory: No respiratory distress, diminished breath sounds with expiratory wheezing in all duckworth. No retractions. Speaking in brief sentences. Cardiovascular: Normal S1 and S2 regular rate & rhythm, no murmur, gallops or rubs. Abdominal: Soft, nontender, non distended, no rebound or guarding. Normoactive bowel sounds. Musculoskeletal: Moves all 4 extremities, no edema Neurological: A/Ox3, speech clear, no facial asymmetry Skin: Warm, dry, no rashes Psychiatric: Normal affect, normal mood Objective Data Vital Signs Vital Signs: Vital Signs - 24 hr 12/09/21 19:40 12/09/21 20:00 12/09/21 22:00 Temperature 98.1 F Pulse Rate 75 75 Respiratory Rate 18 Blood Pressure 148/80 H Pulse Oximetry 95 Oxygen Delivery Room Air 12/10/21 00:00 12/10/21 01:58 12/10/21 01:58 Temperature Pulse Rate 74 73 Respiratory Rate 18 Blood Pressure Pulse Oximetry 95 Oxygen Delivery Room Air 12/10/21 02:05 12/10/21 04:00 12/10/21 06:00 Temperature 98.1 F Pulse Rate 77 73 76 Respiratory Rate 18 16 Blood Pressure 152/83 H Pulse Oximetry 94 Oxygen Delivery 12/10/21 09:15 12/10/21 09:19 12/10/21 09:26 Temperature Pulse Rate 75 77 Respiratory Rate 18 18 Blood Pressure Pulse Oximetry 96 Oxygen Delivery Room Air 12/10/21 08:07 12/10/21 13:30 12/10/21 13:40 Temperature Pulse Rate 76 79 Respiratory Rate 18 18 Blood Pressure Pulse Oximetry 92 Oxygen Delivery Room Air 12/10/21 13:59 12/10/21 08:00 12/10/21 12:00 Temperature 98.4 F Pulse Rate 84 82 77 Respiratory Rate 16 Blood Pressure 153/85 H Pulse Oximetry 93 Oxygen Delivery Intake/Output Intake/Output: Intake & Output 12/07/21 12/08/21 12/09/21 12/10/21 23:59 23:59 23:59 23:59 Intake Total 1120 2134 1777 1230 Balance 1120 2134 1777 1230 Meds/Results Medications: Active Medications Generic Name Dose R
[2021-12-10] MEDS: POTASSIUM CHLORIDE 20 MEQ TABLET 40 MEQ PO (18:32)
[2021-12-10 18:54] LABS: Magnesium 1.9 mg/dL (1.6-2.3)
[2021-12-10] MEDS: MAGNESIUM OXIDE 400 MG TABLET PO (20:55)
[2021-12-11] VITALS (10 sets, daily range): BP systolic 134; BP diastolic 84; PULSE 66–85; RESP 16–18; TEMP 36.6; O2SAT 92–97
[2021-12-11] MEDS: IPRATROPIUM BR 0.02% INH SOLN 0.5 MG/2.5 ML VIAL INHALATION ×2 (02:28→07:35)
[2021-12-11] MEDS: ALBUTEROL SULFATE NEB 2.5 MG/0.5 ML INH INHALATION ×2 (02:28→07:35)
[2021-12-11] MEDS: MAGNESIUM OXIDE 400 MG TABLET PO (05:43)
[2021-12-11 07:14] LABS: Anion Gap 6 mmol/L (8-16); Blood Urea Nitrogen 18 mg/dL (9-20); Calcium 9.3 mg/dL (8.4-10.2); Carbon Dioxide 29 mmol/L (22-30); Chloride 102 mmol/L (98-107); Estimated CRCL calculation 104 ml/min; Estimated Glomerular Filt Rate > 60; Glucose 113 mg/dL (65-110); Magnesium 1.9 mg/dL (1.6-2.3); Potassium 3.6 mmol/L (3.4-5.0); Sodium 137 mmol/L (137-145)
[2021-12-11] MEDS: FLUTICASONE/SALMETEROL 115-21 MCG INHALER 1 PUFF 2 PUFF INHALATION (07:35)
[2021-12-11] MEDS: UMECLIDINIUM BROMIDE 62.5 MCG ELLIPTA 1 PUFF INHALATION (07:35)
[2021-12-11] MEDS: ASPIRIN 81 MG ENTERIC TABLET PO (08:22)
[2021-12-11] MEDS: predniSONE 20 MG TABLET 40 MG PO (08:22)
[2021-12-11] MEDS: ENOXAPARIN 40 MG/0.4 ML SYRINGE SUB-Q (08:22)
[2021-12-11] MEDS: ROSUVASTATIN 10 MG TABLET 40 MG PO (08:23)
[2021-12-11] MEDS: FERROUS SULFATE 324 MG TABLET PO (08:23)
[2021-12-11] MEDS: guaiFENesin 12 HR 600 MG TABCR PO (08:23)
[2021-12-11] MEDS: PANTOPRAZOLE 40 MG TABLET PO (08:23)
[2021-12-11] MEDS: NICOTINE (*PBKC) 21 MG PATCH 1 PATCH TRANSDERM (08:23)
--- NOTE | 2021-12-11 10:46 | PM.DS ---
DS: Admitting Diagnosis Discharge Date 12/11/2021 1046 Admitting Diagnosis Acute respiratory failure with hypoxia Acute COPD exacerbation Community acquired pneumonia DS: Discharge Diagnosis Discharge Diagnosis (1) Acute respiratory failure with hypoxia: Code(s): J96.01 - Acute respiratory failure with hypoxia Status: Acute (2) COPD (chronic obstructive pulmonary disease): Qualifiers: COPD type: unspecified COPD Qualified Code(s): J44.9 - Chronic obstructive pulmonary disease, unspecified Code(s): J44.9 - Chronic obstructive pulmonary disease, unspecified Status: Acute (3) CAP (community acquired pneumonia): Qualifiers: Laterality: unspecified laterality Qualified Code(s): J18.9 - Pneumonia, unspecified organism Code(s): J18.9 - Pneumonia, unspecified organism Status: Acute DS: Summary Hospital Course Reason for hospitalization: shortness of breath Hospital Course: Wyatt Hilton is a 61 yo male smoker, with a hx of COPD, who presented to the ED with complaints of productive cough w/ yellow sputum, sob, and wheezing which has been worsening x2-3 days prior to admission. he also reported c/o chills and body aches.? He reportedly was walking up the stairs the evening prior to admission and his home pulse ox read 77% on room air, prompting him to to come to the ED for evaluation.? He also felt lightheaded at the time.? He has grandchildren in daycare who have been sick recently as well as several family members, but has not been around them recently.?He is fully vaccinated for COVID and his home test was negative.? He also admits to some chest pain with his coughing fits only, as well as nasal congestion and sore throat from the post nasal drip. ED workup significant for leukocytosis of 17.0 and CXR w/ atelectasis vs PNA.? The patient was referred for observation and management of acute COPD exacerbation. He was treated with duonebs scheduled, ICS/LABA inhaler and started on empiric Rocephin and azithromycin. Chest x-ray on admission was concerning for airspace opacities suggestive of atelectasis versus pneumonia. He was weaned to room air with adequate saturations at rest, however, he had persistent dyspnea with exertion, intermittent dyspnea at rest, persistently productive cough and was noted to desaturate to mid-80% with ambulation on room air. Systemic steroids were initiated on 12/08, incruse ellipta was added on 12/10, and antibiotics were changed to levaquin 750 mg PO daily on 12/11 due to persistent dyspnea, desaturation with activity and unchanged chest x-ray. On the day of discharge the patient reported feeling better overall. His dyspnea at rest and with exertion was improved. His spO2 was noted to be 90-93% on room air with ambulation. He was discharged home in stable condition on triple inhaler therapy Symbicort and Incruse Ellipta for maintenance control, as well as emergency albuterol inhaler. Levaquin 750 mg PO was continued at discharge for a total of 5-day treatment. Time spent discussing smoking cessation with patient: 3 to 10 minutes Status at Discharge Cognitive/behavioral status at discharge: AOx3, pleasant and cooperative. Functional status at discharge: independent ambulation Overall status at discharge: patient is progressing back to baseline Time Spent with Patient Time attestation: Total time spent providing and/or coordinating discharge services: Time spent: Less than 30 minutes Exam Narrative: General: No acute distress, non-toxic appearing adult male. Sitting at the bedside. No oxygen. Eyes: PERRL, no scleral icterus HEENT: NCAT, external ears normal, mucous membranes moist. Respiratory: No respiratory distress, diminished breath sounds without wheezing, rhonchi or rales. No retractions. Speaking in brief sentences. Cardiovascular: Normal S1 and S2 regular rate & rhythm, no murmur, gallops or rubs. Abdominal: Soft, nontender, non distended,
[2021-12-11] MEDS: levoFLOXacin 750 MG TABLET PO (11:09)
== END 2021-12-11 12:20 | disposition home or self-care (01) | DRG 140 ==
LOC: ANHED 05:42 → ANH2MED 08:10
PROVIDERS: Physician Assistant; Admitting Provider Internal Medicine; Emergency Provider Emergency Medicine; PCP Family Medicine; Visit Provider Nurse Practitioner Family
DX: J44.1 Chronic obstructive pulmonary disease with (acute) exacerbation (principal); J44.0 Chronic obstructive pulmonary disease with (acute) lower respiratory infection; J18.9 Pneumonia, unspecified organism; J96.01 Acute respiratory failure with hypoxia; D50.9 Iron deficiency anemia, unspecified; E78.2 Mixed hyperlipidemia; F17.210 Nicotine dependence, cigarettes, uncomplicated; Z79.82 Long term (current) use of aspirin
CPT/HCPCS: 36415; 71045; 71046; 80048; 80053; 83735; 83880; 84484; 85025; 85027; 87502; 93005; 94640; 96365; 96366; 96367; 96372; 96375; 99291; A9270; C9803; G0378; G0379; J0456; J0696; J1650; J2405; J7512; U0003; U0005

== ENCOUNTER 2022-01-15 06:59 | Outpatient (CLI) | payer OTHER, SELFPAY ==
--- NOTE | ~2022-01-15 | XR_ITS ---
EXAMINATION: XR chest 2V Exam Date/Time: 01/15/2022 7:05 CDT HISTORY: J18.9 - Pneumonia, unspecified organism.FOLLOW UP Comparison: 10/28/2020 and 12/10/2021. RESULT: Lines, tubes, and devices: Thoracic spinal tamika. Lungs and pleura: Bibasilar scar. Emphysematous change. Cardiomediastinal silhouette: Stable cardiomediastinal silhouette. Other: No acute osseous or upper abdominal finding. IMPRESSION: No acute cardiopulmonary process. Reviewed, dictated and finalized at location K.
== END 2022-01-15 07:00 | disposition home or self-care (01) ==
PROVIDERS: PCP Family Medicine; Visit Provider Physician Assistant Medical
DX: J18.9 Pneumonia, unspecified organism (principal)
CPT/HCPCS: 71046

== ENCOUNTER 2022-07-04 11:11 | Outpatient (CLI) | payer OTHER, SELFPAY ==
[2022-07-04 12:57] LABS: Basophils Absolute Auto 0.1 K/mm3 (0.0-0.1); Basophils Percent Auto 0.7 % (0.2-1.2); Eosinophils Absolute Auto 0.1 K/mm3 (0-0.3); Eosinophils Percent Auto 1.2 % (0-4.4); Hematocrit 45.8 % (42.0-52.0); Hemoglobin 15.3 g/dL (14.0-18.0); Immature Granulocyte Absolute 0.02 K/mm3 (0.00-0.031); Immature Granulocyte Percent A 0.3 % (0-0.5); Lymphocytes Absolute Auto 1.88 K/mm3 (0.9-3.2); Lymphocytes Percent Auto 27.9 % (18.3-44.2); Mean Corpuscular HGB Conc 33.4 g/dl (32-36); Mean Corpuscular Hemoglobin 29.2 pg (26-34); Mean Corpuscular Volume 87.4 fl (80-100); Mean Platelet Volume 9.4 fl (7.4-10.4); Monocytes Absolute Auto 0.7 K/mm3 (0.1-0.6); Monocytes Percent Auto 10.4 % (2.6-8.5); Neutrophils Percent Auto 59.5 % (45.5-73.1); Platelet Count Result 241 k/mm3 (150-375); Red Blood Count 5.24 M/mm3 (4.6-6.20); Red Cell Distribution Width 13.7 % (11.5-14.5); White Blood Count 6.8 K/mm3 (4.5-10.0)
--- NOTE | 2022-07-04 12:59 | ECG_ITS ---
Measurements Intervals [place] Rate: 45 P: 71 [place]: 203 QRS: -27 QRSD: 146 T: 13 QT: 527 QTc: 460 Interpretive Statements SINUS BRADYCARDIA VENTRICULAR PREMATURE COMPLEXES RIGHT BUNDLE BRANCH BLOCK ABNORMAL ECG COMPARED TO ECG 12/07/2021 03:31:03 SINUS BRADYCARDIA NOW PRESENT RIGHT BUNDLE-BRANCH BLOCK NOW PRESENT Electronically Signed On 07-04-2022 13:23:56 [employer] by Natalio Estrada D.O.
[2022-07-04 13:11] LABS: Alanine Aminotransferase 25 U/L (6-50); Albumin Level 4.6 g/dL (3.5-5.1); Alkaline Phosphatase 106 U/L (38-126); Anion Gap 6 mmol/L (8-16); Aspartate Amino Transferase 28 U/L (17-59); Bilirubin,Total 1.6 mg/dL (0.2-1.3); Blood Urea Nitrogen 17 mg/dL (9-20); Calcium 9.2 mg/dL (8.4-10.2); Carbon Dioxide 25 mmol/L (22-30); Chloride 103 mmol/L (98-107); Estimated Glomerular Filt Rate > 60; Glucose 108 mg/dL (65-110); Sodium 134 mmol/L (137-145)
[2022-07-04 13:22] LABS: Troponin I < 0.012 ng/mL (0.000-0.034)
[2022-07-04 13:41] LABS: Thyroid Stimulating Hormone 0.673 uIU/mL (0.465-4.680)
[2022-07-04 19:15] LABS: Iron 112 ug/dL (49-181)
[2022-07-04 19:26] LABS: Percent Iron Saturation 30 % (20-50)
[2022-07-04 19:40] LABS: Hemoglobin A1C 6.4 % (<5.7)
== END 2022-07-04 11:12 | disposition home or self-care (01) ==
PROVIDERS: PCP Family Medicine; Visit Provider Physician Assistant Medical
DX: R07.9 Chest pain, unspecified (principal); R03.0 Elevated blood-pressure reading, without diagnosis of hypertension; R73.01 Impaired fasting glucose; D50.9 Iron deficiency anemia, unspecified; D64.9 Anemia, unspecified; R00.1 Bradycardia, unspecified; I45.10 Unspecified right bundle-branch block
CPT/HCPCS: 36415; 80053; 83036; 83540; 83550; 84443; 84484; 85025; 93005

== ENCOUNTER 2022-10-03 08:26 | Outpatient (CLI) | payer OTHER, SELFPAY ==
--- NOTE | 2022-10-30 07:43 | WPDSLEEPSTUD ---
Sleep Study Date of Study: 10/03/22 Ordering Provider: Josemanuel Hines MD Interpreting Physician: Carine Smart DO Sleep Study Type: Split Polysomnogram Height: 1.93 m Weight: 104.326 kg Body Mass Index: 28.0 Neck Circumference (inches): 17.5 [place]: 4 Reason for Sleep Study Waking up throughout the night short of breath Sleep History The patient is a 62-year-old male with COPD, iron deficiency anemia, hyperlipidemia and history tobacco use that had a sleep study ordered for evaluation of sleep apnea. The patient currently works in [employer]. He frequently awakens from sleep short of breath. He occasionally awakens at night with heartburn, belching or cough. He constantly snores loudly enough that others complain. He rarely has trouble sleeping when he has a cold. He frequently wakes up gasping for air throughout the night. He frequently has breathing problems at night observed by himself or others. He rarely sweats excessively at night. He occasionally has heart palpitations or irregular heartbeats during the night. He rarely falls asleep during the day but never while driving. He rarely experiences loss of muscle tone when extremely emotional. He denies having trouble at school or work due to sleepiness. He denies feeling unable to move while waking up or falling asleep. He rarely experiences vivid dreamlike scenes upon awakening or falling asleep. He denies feeling afraid of going to sleep. He rarely has nightmares and rarely remembers his dreams. He rarely has thoughts racing through his mind. He rarely feels sad or depressed. He occasionally has anxiety. He denies having muscular tension. He denies noticing parts of his body jerk. He rarely kicks during the night. He denies having crawling and aching feelings in his legs and denies having leg pain during the night. He denies grinding his teeth during sleep and denies awakening with morning jaw pain. He is rarely bothered by pain during the day but never awakened by pain during the night. He rarely wakes up feeling stiff in the morning. He denies waking up with sore or achy muscles. He rarely wakes up with pain in the neck, spine or other joints. He goes to bed at 10:00 p.m. on both weekdays and weekends. He is able to fall asleep relatively quickly. He wakes up twice throughout the night for unknown reasons and is able to fall back asleep relatively quickly. He wakes up at 4:00 a.m. on both weekdays and weekends. He typically gets 4-5 hours of sleep per night. He does not stay in bed after waking up in the morning. He currently lives with his . He does not consume any caffeinated beverages within 2 hours of bedtime. He does not engage in physical exercise before bedtime. He will watch television before falling asleep. He denies taking naps in the afternoon of the evening. He consumes 2 cups of caffeinated beverage per day. He quit smoking cigarettes 2 years ago. He denies alcohol and recreational drug use. [facility] Past Medical History Medical History BMI 27.0-27.9,adult COPD (chronic obstructive pulmonary disease) Iron deficiency anemia Mixed hyperlipidemia Tobacco abuse Family History Family History Father Hypertension Mother Sibling Obesity Hyperlipemia Social History Social History Smoking packs per day: 0.50 Smoking cigarettes per day: 10.0 Years smoked: 30 Smoking pack-years: 15.00 Smoking status: Former smoker Tobacco type: cigarettes Second hand tobacco smoke exposure: No Smoking end date: 11/13/21 Alcohol intake: never Substance use: never Substance use type: does not use Lack of Transportation: No Lack of Food: Never True Current Housing: I Have Housing Concerned About Future Housing: No Difficulty Paying
[2022-10-30 17:52] VITALS: BMI 28.0
== END 2022-10-04 04:46 | disposition home or self-care (01) ==
LOC: ANHCSM 08:27
PROVIDERS: PCP Family Medicine; Visit Provider Family Medicine
DX: G47.33 Obstructive sleep apnea (adult) (pediatric) (principal); I49.9 Cardiac arrhythmia, unspecified; G47.10 Hypersomnia, unspecified; R03.0 Elevated blood-pressure reading, without diagnosis of hypertension; R07.9 Chest pain, unspecified; Z68.29 Body mass index [BMI] 29.0-29.9, adult; E78.2 Mixed hyperlipidemia; Z87.891 Personal history of nicotine dependence
CPT/HCPCS: 95811

== ENCOUNTER 2023-02-06 12:32 | Outpatient (CLI) | payer OTHER, SELFPAY ==
--- NOTE | ~2023-02-06 | PE_ITS ---
EXAMINATION: PET skull to mid thigh DATE: 02/06/2023 14:20 INDICATION: Spiculated lung nodule TECHNIQUE: Blood glucose level was 100 mg/dL. 8.671 mCi of 18-fluorodeoxyglucose (18-FDG) was adminis tered i.v. Low dose computed tomography (CT) images were acquired from the base of the brain to the p roximal thighs for attenuation correction and anatomic localization. Positron emission tomography (PE T) images were acquired in the same distribution beginning 49 minutes after injection. Images includi ng fused PET/CT images were reconstructed in axial, coronal, and sagittal planes. Automated exposure control technique was employed. The dose-length product was 690.25mGy-cm. COMPARISON: None FINDINGS: Head/neck: There is symmetric increased activity in the oral cavity, palatine tonsils, laryngeal muscles and ocu lar muscles without CT correlate, likely physiologic. No pathologically enlarged cervical lymphadenop athy or suspicious foci of increased FDG uptake in the visualized head or neck. Chest: Normal variant azygos lobe and fissure. Mild bibasilar atelectasis increasing a band of discoid atele ctasis at the lingula with the configuration aspiration the sagittal and coronal images which has a s omewhat nodular appearance measuring 9 mm diameter on the axial imaging planes. No associated FDG upt steven. Couple small groundglass opacities also without associated FDG uptake in the right upper lobe wh ich are most likely infectious or inflammatory in etiology. No pleural effusion. Heart size is normal . Atherosclerotic coronary artery calcification. Very small pericardial effusion. Thoracic aorta is n ormal in caliber. No pathologically enlarged or FDG avid thoracic lymphadenopathy. Moderate-sized sli ding-type hiatal hernia. Abdomen/pelvis/proximal thighs: Physiologic renal accumulation and excretion of FDG activity in the kidneys, bladder and along portio ns of ureters. Normal degree and heterogenous pattern of increased uptake throughout the liver withou t radiologic correlate or dominant FDG avid lesion. Calcified gallstones in the dependent aspect of t he otherwise normal-appearing gallbladder. Pancreas, spleen and bilateral adrenal glands are normal. Mild to moderate uptake scattered throughout the bowels without radiologic correlate, also likely phy siologic. There is moderate colonic diverticulosis with a sigmoid predominance. There is no adjacent inflammatory change to suggest diverticulitis. Prostatomegaly. Mild uptake overlying the bilateral greater trochanters consistent with trochanteric bursitis. No other abnormal foci of increased FDG u ptake or pathologically enlarged lymphadenopathy in the abdomen, pelvis or proximal thighs. Musculoskeletal: Moderate S-shaped scoliosis of the thoracic and lumbar spine. Vertical tamika and laminar hook (along th e concave left side of the thoracic levoscoliosis from T5 through T12. No suspicious lytic, blastic o r FDG avid bone lesions. IMPRESSION: 1. Couple small groundglass opacity right upper lobe without associated FDG uptake which are most lik agustin infectious/inflammatory in etiology. No suspicious solid or FDG avid pulmonary nodules identified . Recommend correlation with reported prior outside imaging which was not supplied for comparison. Reviewed, dictated and finalized at location L. IMPRESSION: 1. Couple small groundglass opacity right upper lobe without associated FDG upt steven which are most likely infectious/inflammatory in etiology. No suspicious so lid or FDG avid pulmonary nodules identified. Recommend correlation with report ed prior outside imaging which was not supplied for comparison.
[2023-02-06 12:48] LABS: Glucose Point of Care 100 mg/dl (65-105)
== END 2023-02-06 12:33 | disposition home or self-care (01) ==
PROVIDERS: PCP Family Medicine; Visit Provider Family Medicine
DX: R91.1 Solitary pulmonary nodule (principal); Z87.891 Personal history of nicotine dependence; R91.8 Other nonspecific abnormal finding of lung field
CPT/HCPCS: 78815; A9552

== ENCOUNTER 2023-02-13 13:15 | Outpatient (CLI) | payer OTHER, SELFPAY ==
--- NOTE | 2023-02-13 13:33 | ECHO_ITS ---
Patient Info Name: Wyatt Hilton Age: 62 years : 1960 Gender: Male Ht: 76 in Wt: 230 lbs BSA: 2.38 m2 HR: 74 bpm BP: 149 / 95 mmHg Heart Rhythm: Sinus Rhythm Technical Quality: Fair Exam Date: 02/13/2023 2:08 PM Exam Location: [facility] Patient Status: Outpatient Admit Date: 02/13/2023 Staff Ordering Physician: Natalio Estrada DO Cabin Crew: Johana Chavez RDCS Attending Provider: Natalio Estrada DO Referring Physician: Sean VILLASEÑOR; Exam Type: CA echo doppler color flow Study Info Indications R06.02 - Shortness of breath Complete two-dimensional, color flow and Doppler transthoracic echocardiogram is performed. Summary 1. Complete two-dimensional, color flow and Doppler transthoracic echocardiogram is performed. 2. Left ventricular chamber dimension is normal. 3. Left ventricular systolic function is normal, estimated at 55-60%. 4. There is mild concentric increased left ventricular wall thickness. 5. The left ventricular diastolic function is grade I diastolic dysfunction. 6. E/e' 11 is mildly elevated. 7. Left atrial chamber dimension is mildly enlarged. 8. There is mild aortic valve sclerosis. 9. There is trace aortic valve regurgitation. 10. There is trace tricuspid valve regurgitation. 11. Mild pulmonary hypertension, estimated pulmonary arterial systolic pressure is 46 mmHg. 12. Normal inferior vena cava with >50% collapse upon inspiration consistent with elevated right atrial pressure, 10 mmHg. Left Ventricle E/e' 11 is mildly elevated. Left ventricular chamber dimension is normal. Left ventricular systolic function is normal, estimated at 55-60%. There is mild concentric increased left ventricular wall thickness. The left ventricular diastolic function is grade I diastolic dysfunction. Right Ventricle Right ventricular systolic function is normal and with normal TAPSE 2.5 cm. Right ventricular chamber dimension is normal. Left Atria Left atrial chamber dimension is mildly enlarged. Right Atria Right atrial chamber dimension is normal. Aortic Valve The aortic valve is trileaflet. There is mild aortic valve sclerosis. There is no aortic valve stenosis. There is trace aortic valve regurgitation. Pulmonic Valve There is no pulmonic regurgitation. Mitral Valve There is no mitral valve stenosis. There is no mitral valve regurgitation. Tricuspid Valve There is trace tricuspid valve regurgitation. Mild pulmonary hypertension, estimated pulmonary arterial systolic pressure is 46 mmHg. Pericardium/Pleural There is no pericardial effusion. Inferior Vena Cava Normal inferior vena cava with >50% collapse upon inspiration consistent with elevated right atrial pressure, 10 mmHg. Aorta The aortic root size at the sinus of Valsalva is normal. Left Ventricular Outflow Tract Name Value Normal LVOT 2D LVOT Diameter 2.4 cm LVOT Doppler LVOT Peak Gradient 8 mmHg LVOT Mean Gradient 3 mmHg LVOT VTI 28 cm LVOT VTI/AV VTI Ratio 1.0 LVOT Stroke Volume 124 ml LVOT CO 8.0 l/min
== END 2023-02-13 13:16 | disposition home or self-care (01) ==
PROVIDERS: PCP Family Medicine; Visit Provider Internal Medicine Cardiovascular Disease
DX: R06.02 Shortness of breath (principal); I08.3 Combined rheumatic disorders of mitral, aortic and tricuspid valves
CPT/HCPCS: 93306

== ENCOUNTER 2023-02-22 07:26 | Outpatient (CLI) | payer OTHER, SELFPAY ==
[2023-02-22 08:19] LABS: Cholesterol 112 mg/dL (0-200); HDL Direct 59 mg/dL; Triglycerides 37 mg/dL (<150)
[2023-02-22 08:28] LABS: LDL Cholesterol Direct 45 mg/dL
== END 2023-02-22 07:27 | disposition home or self-care (01) ==
LOC: ANHLAB 07:27
PROVIDERS: PCP Family Medicine; Visit Provider Internal Medicine Cardiovascular Disease
DX: E78.2 Mixed hyperlipidemia (principal)
CPT/HCPCS: 36415; 80061

== ENCOUNTER 2023-09-25 07:50 | Outpatient (CLI) | payer OTHER, SELFPAY ==
[2023-09-25 08:43] LABS: Basophils Absolute Auto 0.1 K/mm3 (0.0-0.1); Basophils Percent Auto 0.9 % (0.2-1.2); Eosinophils Absolute Auto 0.1 K/mm3 (0-0.3); Eosinophils Percent Auto 1.6 % (0-4.4); Hematocrit 43.7 % (42.0-52.0); Hemoglobin 14.3 g/dL (14.0-18.0); Immature Granulocyte Absolute 0.04 K/mm3 (0.00-0.031); Immature Granulocyte Percent A 0.6 % (0-0.5); Lymphocytes Absolute Auto 1.63 K/mm3 (0.9-3.2); Lymphocytes Percent Auto 25.3 % (18.3-44.2); Mean Corpuscular HGB Conc 32.7 g/dl (32-36); Mean Corpuscular Hemoglobin 29.1 pg (26-34); Mean Corpuscular Volume 88.8 fl (80-100); Mean Platelet Volume 9.9 fl (7.4-10.4); Monocytes Absolute Auto 0.8 K/mm3 (0.1-0.6); Monocytes Percent Auto 11.9 % (2.6-8.5); Neutrophils Absolute Auto 3.9 K/mm3 (1.3-6.7); Neutrophils Percent Auto 59.7 % (45.5-73.1); Platelet Count Result 294 k/mm3 (150-375); Red Blood Count 4.92 M/mm3 (4.6-6.20); Red Cell Distribution Width 12.6 % (11.5-14.5); White Blood Count 6.5 K/mm3 (4.5-10.0)
[2023-09-25 09:20] LABS: Alanine Aminotransferase 25 U/L (6-50); Albumin Level 4.1 g/dL (3.5-5.1); Alkaline Phosphatase 74 U/L (38-126); Anion Gap 7 mmol/L (8-16); Aspartate Amino Transferase 32 U/L (17-59); Bilirubin,Total 1.1 mg/dL (0.2-1.3); Blood Urea Nitrogen 16 mg/dL (9-20); Calcium 9.6 mg/dL (8.4-10.2); Carbon Dioxide 21 mmol/L (22-30); Chloride 106 mmol/L (98-107); Estimated Glomerular Filt Rate > 60; Glucose 113 mg/dL (65-110); Potassium 4.3 mmol/L (3.4-5.0); Sodium 134 mmol/L (137-145)
[2023-09-25 09:22] LABS: Prostate Specific Antigen 3.8 ng/mL (< OR = 4.0)
[2023-09-25 10:27] LABS: Hemoglobin A1C 6.1 % (<5.7)
== END 2023-09-25 07:51 | disposition home or self-care (01) ==
LOC: ANHLAB 07:51
PROVIDERS: PCP Family Medicine; Visit Provider Physician Assistant Medical
DX: I44.1 Atrioventricular block, second degree (principal); G47.33 Obstructive sleep apnea (adult) (pediatric); R73.03 Prediabetes; E87.1 Hypo-osmolality and hyponatremia; E78.2 Mixed hyperlipidemia; Z12.5 Encounter for screening for malignant neoplasm of prostate
CPT/HCPCS: 36415; 80053; 83036; 84153; 84443; 85025; G0103

== ENCOUNTER 2024-06-16 00:36 | Day surgery (SDC) | payer OTHER, SELFPAY ==
[2024-06-05 10:40] VITALS: BMI 28.8
[2024-06-16 11:11] VITALS: BP 152/69; PULSE 84; RESP 18; TEMP 37; O2SAT 95
[2024-06-16] MEDS: LACTATED RINGERS 1,000 ML 150 ML IV CONT (11:29)
--- NOTE | 2024-06-16 11:40 | WPDANESEPPF ---
Anes - Initial Pre Proc Eval Procedure: Operation Date: 06/16/24 12:30 Proposed Procedures p Colonoscopy - Ar Ponce MD Date/Time: 06/16/24 11:40 Surgeon: Ar Ponce MD Pre Op Diagnosis: hx colon polyps Patient Data Age: 63 Gender: M Height: 1.91 m Weight: 108.2 kg Last Vital Signs Temp 37.0 C 06/16/24 11:11 Pulse 84 06/16/24 11:11 Resp 18 06/16/24 11:11 BP 152/69 H 06/16/24 11:11 Pulse Ox 95 06/16/24 11:11 O2 Del Method Room Air 06/16/24 11:11 Allergies Allergy/AdvReac Type Severity Reaction Status Date / Time Penicillins Allergy Mild made knees Verified 06/05/24 10:38 hurt Home Medications ?Medication ?Instructions ?Recorded ?Confirmed ?Type aspirin 81 mg tablet 81 mg PO DAILY 01/04/21 06/16/24 History ferrous sulfate 325 mg (65 mg 325 mg PO DAILY 12/07/21 06/16/24 History iron) tablet omeprazole 40 mg capsule,delayed See Rx Instructions .Route 11/02/23 06/16/24 Rx release .COMPLEX #90 caps hydralazine 25 mg tablet 25 mg PO BID #60 tabs 02/18/24 06/16/24 Rx albuterol sulfate 90 mcg/actuation 1 inh inhalation Q4H PRN shortness 03/10/24 06/05/24 Rx aerosol inhaler of breath or wheezing #6.7 grams fluticasone fur. 200 mcg-umeclid See Rx Instructions .Route 04/12/24 06/16/24 Rx 62.5 mcg-vilant 25 mcg .COMPLEX #60 ea inhalat.powder (Trelegy Ellipta) zolpidem 10 mg tablet 10 mg PO QHS PRN sleep #90 tabs 04/23/24 06/16/24 Rx lorazepam 1 mg tablet 1 mg PO BID PRN anxiety #180 tabs 04/25/24 06/16/24 Rx rosuvastatin 20 mg tablet See Rx Instructions .Route 05/20/24 06/16/24 Rx .COMPLEX #90 tabs Patient hx anesthesia problems: none Family hx anesthesia problems: none Results Review: All pre-operative results and documents have been reviewed as part of the pre-operative evaluation. [facility] Past Medical History Medical History Benign tubular adenoma of large intestine Sigmoid colon BMI 27.0-27.9,adult COPD (chronic obstructive pulmonary disease) Hiatal hernia Iron deficiency anemia Lung nodule Mixed hyperlipidemia Panic attacks Tobacco abuse Family History Family History Father Hypertension Mother Sibling Obesity Hyperlipemia Social History Social History Smoking packs per day: 0.50 Smoking cigarettes per day: 10.0 Years smoked: 30 Smoking pack-years: 15.00 Smoking status: Former smoker Tobacco type: cigarettes Second hand tobacco smoke exposure: No Smoking end date: 11/13/21 Alcohol intake: never Substance use: never Substance use type: does not use Do You Feel Safe in your Home?: Yes Lack of Transportation: No Lack of Food: Never True Current Housing: I Do Not Have Housing Concerned About Future Housing: No Difficulty Paying Gas/Electric Bills: No Difficulty Paying for Meds: No Currently Unemployed: No Education: High School Diploma/GED Difficulty w/ Childcare or Family Care: No Living arrangements: with family Additional living arrangements comments: Occupation/Education: occupation 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 Gender identity (if verbalized by the patient): Male Sexual Orientation (if Verbalized by the Patient): Straight or Heterosexual Spiritual care concerns: No Agree to blood products: Yes Anes - Eval Final PreProcedure Day of Procedure 06/16/24 11:40 Patient weight: overweight Heart: regular rate and rhythm Lungs: clear to auscultation Airway: Mallampati scale class II Neurological: alert and oriented Last oral intake: >/= 8 hours ASA classification: III Emergent: no Anesthetic plan: proceed Anesthesia type and monitoring: general GIVS and standard monitoring Results Review: All pre-operative results and documents have been reviewed as part of the pre-operative evaluation. Informed Consent: The patient's anesthetic plan and its attendant risks and benefits were discussed with the patient/family/POA. Questions were solicited and answers provided to the satisfaction of the patient/family/POA.
--- NOTE | 2024-06-16 12:31 | PM.HPGS ---
History of Present Illness History of Present Illness Consent: Risks, benefits, and alternatives have been discussed and questions answered. Patient agrees to proceed with procedure. Chief complaint: hx colon polyps Narrative: Wyatt Hilton is a 63 year old male with colon polyp in 2020 Review of Systems Review of Systems: All systems reviewed & are unremarkable except as noted in HPI and below PMFSH Past Medical History Medical History Benign tubular adenoma of large intestine Sigmoid colon BMI 27.0-27.9,adult COPD (chronic obstructive pulmonary disease) Hiatal hernia Iron deficiency anemia Lung nodule Mixed hyperlipidemia Panic attacks Tobacco abuse Family History Family History Father Hypertension Mother Sibling Obesity Hyperlipemia Social History Social History Smoking packs per day: 0.50 Smoking cigarettes per day: 10.0 Years smoked: 30 Smoking pack-years: 15.00 Smoking status: Former smoker Tobacco type: cigarettes Second hand tobacco smoke exposure: No Smoking end date: 11/13/21 Alcohol intake: never Substance use: never Substance use type: does not use Do You Feel Safe in your Home?: Yes Lack of Transportation: No Lack of Food: Never True Current Housing: I Do Not Have Housing Concerned About Future Housing: No Difficulty Paying Gas/Electric Bills: No Difficulty Paying for Meds: No Currently Unemployed: No Education: High School Diploma/GED Difficulty w/ Childcare or Family Care: No Living arrangements: with family Additional living arrangements comments: Occupation/Education: occupation 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 Gender identity (if verbalized by the patient): Male Sexual Orientation (if Verbalized by the Patient): Straight or Heterosexual Spiritual care concerns: No Agree to blood products: Yes Meds Home Medications and Allergies Home Medications ?Medication ?Instructions ?Recorded ?Confirmed ?Type aspirin 81 mg tablet 81 mg PO DAILY 01/04/21 06/16/24 History ferrous sulfate 325 mg (65 mg 325 mg PO DAILY 12/07/21 06/16/24 History iron) tablet omeprazole 40 mg capsule,delayed See Rx Instructions .Route 11/02/23 06/16/24 Rx release .COMPLEX #90 caps hydralazine 25 mg tablet 25 mg PO BID #60 tabs 02/18/24 06/16/24 Rx albuterol sulfate 90 mcg/actuation 1 inh inhalation Q4H PRN shortness 03/10/24 06/05/24 Rx aerosol inhaler of breath or wheezing #6.7 grams fluticasone fur. 200 mcg-umeclid See Rx Instructions .Route 04/12/24 06/16/24 Rx 62.5 mcg-vilant 25 mcg .COMPLEX #60 ea inhalat.powder (Trelegy Ellipta) zolpidem 10 mg tablet 10 mg PO QHS PRN sleep #90 tabs 04/23/24 06/16/24 Rx lorazepam 1 mg tablet 1 mg PO BID PRN anxiety #180 tabs 04/25/24 06/16/24 Rx rosuvastatin 20 mg tablet See Rx Instructions .Route 05/20/24 06/16/24 Rx .COMPLEX #90 tabs Allergies Allergy/AdvReac Type Severity Reaction Status Date / Time Penicillins Allergy Mild made knees Verified 06/05/24 10:38 hurt Vital Signs Vital Signs - 24 hr 06/16/24 11:11 Temperature 98.6 F Pulse Rate 84 Respiratory Rate 18 Blood Pressure 152/69 H Pulse Oximetry 95 Oxygen Delivery Room Air Exam Const: General: comfortable and no acute distress HENMT: Face/Nose/Sinus: Normal nares present Eyes: General: appearance normal, both eyes and all related structures Neck: Neck: no JVD Resp: Auscultation: clear to auscultation bilaterally Cardio: Rate: regular rate Rhythm: regular rhythm GI: Inspection: non-distended GI Palp: Yes Soft to palpation Skin: General skin exam: normal color Neuro: General: gait normal Speech: normal speech Extrem: General: normal to inspection Psych: Mental Status: mental status grossly normal Assessment and Plan Assessment and plan (1) Benign tubular adenoma of large intestine: Code(s): D12.6 - Benign neoplasm of colon, unspecified Status: Acute Assessment and Plan: colonoscopy
[2024-06-16 12:52] VITALS: BP 119/60; PULSE 49; RESP 13; O2SAT 99
[2024-06-16 13:02] VITALS: BP 142/69; PULSE 55; RESP 20; O2SAT 95
[2024-06-16 13:12] VITALS: BP 134/76; PULSE 51; RESP 20; O2SAT 96
--- OUTSIDE RECORDS SUMMARY | 2024-06-21 09:36 | XMS_ITS | CONTINUITY OF CARE DOCUMENT ---
Author Name delon jernigan Address Unknown Organization [facility] Address [address] [place] [address] Phone [phone] Care Team Providers Care Personnel Records Clerk Name Role Phone Catracho Mendenhall MD Unavailable Catracho Mendenhall MD Unavailable [phone] INS[employer]ANCE PROVID[employer] Payer name Policy type / Coverage type [place] [employer] [place] party [place] MED[place] Medicaid [id number]
== END 2024-06-16 13:19 | disposition home or self-care (01) ==
PROVIDERS: PCP Family Medicine; Visit Provider Internal Medicine Gastroenterology
PROC: 0DJD8ZZ Inspection of Lower Intestinal Tract, Via Natural or Artificial Opening Endoscopic (ICD-10-PCS; CPT 45378; principal; 2024-06-16 12:30)
DX: Z12.11 Encounter for screening for malignant neoplasm of colon (principal); D12.2 Benign neoplasm of ascending colon; K63.5 Polyp of colon; K57.30 Diverticulosis of large intestine without perforation or abscess without bleeding; K64.8 Other hemorrhoids; J44.9 Chronic obstructive pulmonary disease, unspecified; D50.9 Iron deficiency anemia, unspecified; E78.2 Mixed hyperlipidemia; Z87.891 Personal history of nicotine dependence; Z79.51 Long term (current) use of inhaled steroids
CPT/HCPCS: 45380; 45385; 88305; J2003; J2704; J7120

== ENCOUNTER 2024-09-24 08:07 | Outpatient (CLI) | payer OTHER, SELFPAY ==
--- OUTSIDE RECORDS SUMMARY | 2024-09-24 08:14 | XMS_ITS | CONTINUITY OF CARE DOCUMENT ---
Author Name delon jernigan Address Unknown Organization [facility] Address [address] [place] [address] Phone [phone] Care Team Providers Care Timber Sizer Name Role Phone Catracho Mendenhall MD Unavailable Catracho Mendenhall MD Unavailable [phone] [employer]ANCE PROVID[employer] Payer name Policy type / Coverage type [place] [employer] party [place] MED[place] Medicaid [id number]
[2024-09-24 09:01] LABS: Hemoglobin A1C 5.8 % (<5.7)
[2024-09-24 09:03] LABS: Alanine Aminotransferase 21 U/L (6-50); Albumin Level 4.8 g/dL (3.5-5.1); Alkaline Phosphatase 96 U/L (38-126); Anion Gap 11 mmol/L (4-12); Aspartate Amino Transferase 30 U/L (17-59); Bilirubin,Total 1.6 mg/dL (0.2-1.3); Blood Urea Nitrogen 19 mg/dL (9-20); Carbon Dioxide 27 mmol/L (22-30); Chloride 102 mmol/L (98-107); Cholesterol 124 mg/dL (0-200); Estimated Glomerular Filt Rate > 60; Glucose 103 mg/dL (65-110); HDL Direct 65 mg/dL; Potassium 4.8 mmol/L (3.4-5.0); Sodium 140 mmol/L (137-145); Triglycerides 64 mg/dL (<150)
[2024-09-24 09:06] LABS: Basophils Absolute Auto 0.1 K/mm3 (0.0-0.1); Eosinophils Absolute Auto 0.1 K/mm3 (0-0.3); Eosinophils Percent Auto 1.9 % (0-4.4); Hematocrit 47.8 % (42.0-52.0); Hemoglobin 15.7 g/dL (14.0-18.0); Immature Granulocyte Absolute 0.02 K/mm3 (0.00-0.031); Immature Granulocyte Percent A 0.3 % (0-0.5); Lymphocytes Absolute Auto 1.53 K/mm3 (0.9-3.2); Lymphocytes Percent Auto 26.2 % (18.3-44.2); Mean Corpuscular HGB Conc 32.8 g/dl (32-36); Mean Corpuscular Volume 94.3 fl (80-100); Mean Platelet Volume 9.6 fl (7.4-10.4); Monocytes Absolute Auto 0.7 K/mm3 (0.1-0.6); Monocytes Percent Auto 11.8 % (2.6-8.5); Neutrophils Absolute Auto 3.4 K/mm3 (1.3-6.7); Neutrophils Percent Auto 58.8 % (45.5-73.1); Platelet Count Result 279 k/mm3 (150-375); Red Blood Count 5.07 M/mm3 (4.6-6.20); Red Cell Distribution Width 12.6 % (11.5-14.5); White Blood Count 5.8 K/mm3 (4.5-10.0)
[2024-09-24 09:15] LABS: LDL Cholesterol Direct 41 mg/dL
[2024-09-24 09:34] LABS: Prostate Specific Antigen 4.1 ng/mL (< OR = 4.0)
== END 2024-09-24 08:08 | disposition home or self-care (01) ==
LOC: ANHLAB 08:09
PROVIDERS: PCP Family Medicine; Visit Provider Physician Assistant Medical
DX: R73.03 Prediabetes (principal); I10 Essential (primary) hypertension; I45.10 Unspecified right bundle-branch block; E78.2 Mixed hyperlipidemia
CPT/HCPCS: 36415; 80053; 80061; 83036; 84153; 84443; 85025; G0103